=== PATIENT | female | born 1960 ===

== ENCOUNTER 2022-03-18 16:11 | Observation (INO) ==
[2022-03-18] MEDS ORDERED: Potassium Chloride LIQUID 20 MEQ/15 ML LIQUID PO ONE (20:21)
[2022-03-18] MEDS ORDERED: [UNRECOGNIZED DRUG - OTHER] IM ONE (20:33)
[2022-03-18] MEDS ORDERED: Tetan/Diph/Pertus SYR(Tdap) 0.5 ML SYR(BOOSTRIX) use SYR contains LATEX IM ONE (20:34)
[2022-03-18] MEDS ORDERED: Ondansetron 4 mg VIAL 2 MG/ML 2 ml VIAL IV PRN (20:56)
[2022-03-18] MEDS ORDERED: HYDROmorphone 1 MG/1 ML SYRINGE IV SLOW PU PRN (20:57)
[2022-03-18] MEDS ORDERED: Lactated Ringers 1000 ml BAG 1,000 ML IV ONE (21:54)
[2022-03-19] MEDS: metroNIDAZOLE IV 500 MG/100ML 500 MG/100 ML BAG IVPB SCH ×3 (00:06→11:00)
[2022-03-19 06:03] LABS: ABS Monocytes 0.3 10^3/ul (0-0.8); ABS Neutrophils 4.2 10^3/ul (1.5-7.7); Eosinophil % 0.8 %; Hematocrit 37 % (35-47); Hemoglobin 12.4 g/dL (12.0-16.0); Lymphocyte % 18.6 %; Mean Corpuscular HGB Conc 33 g/dL (31-36); Mean Corpuscular Hemoglobin 31 pg (27-31); Mean Corpuscular Volume 94 fL (80-97); Mean Platelet Volume 7.9 fL (7.4-10.4); Platelet Count 143 10^3/uL (150-450); Red Blood Count 3.97 10^6 /uL (3.70-4.87); Red Cell Distribution Width 14 % (10-15); White Blood Count 5.6 10^3/uL (3.5-10.8)
[2022-03-19 06:15] LABS: C Reactive Protein 73.9 mg/L (<8.01); Calcium 8.1 mg/dL (8.6-10.3); Magnesium 1.8 mg/dL (1.9-2.7); Potassium 4.1 mmol/L (3.5-5.0); eGFR CKD-EPI 100.4 (>60)
[2022-03-19] MEDS ORDERED: Magnesium Sulfate 2 gm BAG 2 GM/50 ML BAG IVPB ONE (07:32)
[2022-03-19] MEDS ORDERED: Propofol 10 MG/ML 20 ML BTL ONE (07:54)
[2022-03-19] MEDS ORDERED: Midazolam 2 mg/2 ml VIAL 1 mg/ml 2 ml VIAL (2 mg) ONE (07:54)
[2022-03-19] MEDS ORDERED: Ondansetron 4 mg VIAL 2 MG/ML 2 ml VIAL ONE (07:54)
[2022-03-19] MEDS ORDERED: fentaNYL 100 mcg/2 ml 50 MCG/ML VIAL ONE (07:54)
[2022-03-19] MEDS ORDERED: Bupivacaine 0.5% SDV PF 30ML VIAL ONE (07:57)
[2022-03-19] MEDS ORDERED: Bupivacaine 0.25% SDV 30 ML ONE (07:57)
[2022-03-19] MEDS ORDERED: Lidocaine 2% PF 5 ML VIAL ONE (08:20)
[2022-03-19] MEDS ORDERED: Ketamine HCL 50 mg/ml 10 ml VIAL (500 MG) ONE (08:25)
[2022-03-19] MEDS ORDERED: Ranolazine 500 mg TAB ER (NF) PO SCH (09:00)
[2022-03-19] MEDS ORDERED: Isosorbide Mononit ER 30mg TAB PO SCH (09:00)
[2022-03-19] MEDS ORDERED: Ondansetron 4 mg VIAL 2 MG/ML 2 ml VIAL IV PRN (09:48)
[2022-03-19] MEDS ORDERED: Acetaminophen IV 1 GM/100ML 1,000 MG/100 ML BAG IV ONE (09:48)
[2022-03-19] MEDS ORDERED: Naloxone 0.4 mg VIAL 0.4 mg/ml 1 ml VIAL IV PRN (09:48)
[2022-03-19] MEDS ORDERED: fentaNYL 100 mcg/2 ml 50 MCG/ML VIAL IV PRN (09:48)
[2022-03-19] MEDS ORDERED: cefTRIAXone 1 gm/50 mL D5W 1 GM/50 ML BAG IV SCH ×2 (12:00→14:00)
[2022-03-19 13:36] VITALS: BP 95/58
[2022-03-19] MEDS ORDERED: Mometasone 220 MCG MDI INH SCH (19:00)
== END 2022-03-19 14:15 | disposition home or self-care (01) ==
LOC: INTOOBSV 18:33 → SSU 18:33 → SUATTDRO 18:33
PROVIDERS: ADMIT Internal Medicine; ATTEND Student in an Organized Health Care Education/Training Program